=== PATIENT | female | born 1955 | race Caucasian/White ===

== ENCOUNTER 2022-06-30 15:11 | Outpatient (CLI) | payer SELFPAY ==
[2022-06-30 21:48] LABS: Basophils Absolute Auto 0.02 K/uL (0.00-0.30); Basophils Percent Auto 0.2 % (0.0-3.0); Eosinophils Absolute Auto 0.02 K/uL (0.00-0.50); Eosinophils Percent Auto 0.2 % (0.0-7.0); Hematocrit 43.9 % (33.0-51.0); Hemoglobin* 16.3 gm/dL (12.0-16.0); Immature Granulocytes Abs Auto 0.02 K/uL (0.00-0.30); Mean Corpuscular HGB Conc 37 gm/dL (32-36); Mean Corpuscular Hemoglobin 36 pg (26-34); Mean Corpuscular Volume 97 fL (80-100); Neutrophils Percent Auto 78.4 % (42.0-72.0); Platelet Count* 191 K/uL (140-440); RDW Coefficient of Variation % 11.2 % (11.5-15.5); Red Blood Count 4.52 m/uL (4.00-5.20)
[2022-06-30 21:53] LABS: Slide Review Reflex No
[2022-06-30 21:54] LABS: Chloride* 93 mmol/L (96-114)
[2022-06-30 21:55] LABS: Albumin* 4.7 g/dL (3.3-5.0); Sodium* 129 mmol/L (135-149)
[2022-06-30 21:56] LABS: Potassium* 4.4 mmol/L (3.6-5.1)
[2022-06-30 21:58] LABS: Alanine Aminotransferase* 32 U/L (4-35); Alkaline Phosphatase* 125 U/L (40-150); Aspartate Amino Transferase* 46 U/L (12-35); Bilirubin Total* 0.9 mg/dL (0.1-1.5); Blood Urea Nitrogen* 21 mg/dL (7-30); Carbon Dioxide* 24 mmol/L (20-32); Cholesterol* 276 mg/dL (90-199); Creatinine* 0.8 mg/dL (0.5-1.5); Estimated Glomerular Filt Rate 81 ml/min; Glucose* 87 mg/dL (60-115); Total Protein* 7.5 g/dL (6.0-8.3); Triglycerides* 303 mg/dL (40-149)
[2022-06-30 21:59] LABS: Calcium* 9.9 mg/dL (8.4-10.6); HDL Cholesterol* 69 mg/dL (>=50); LDL Cholesterol Calculated 146 mg/dL (<100)
[2022-06-30 22:14] LABS: Troponin I* < 0.01 ng/mL (0.01-0.04)
[2022-07-01 00:04] LABS: D Dimer Quantitative* 1.09 ug/ml (0.00-0.50)
== END 2022-06-30 15:12 | disposition home or self-care (01) ==
PROVIDERS: Visit Provider Nurse Practitioner Family
DX: R06.00 Dyspnea, unspecified (principal); R07.89 Other chest pain; E78.5 Hyperlipidemia, unspecified
CPT/HCPCS: 36415; 80053; 80061; 84484; 85025; 85379

== ENCOUNTER 2022-07-01 11:57 | Outpatient (CLI) | payer SELFPAY ==
--- OUTSIDE RECORDS SUMMARY | 2022-07-01 12:00 | XMS_ITS | Clinical Summary ---
:1955 Author Organization [facility] [place] [address] Care Team Providers Name Role Phone None Primary Care Provider Unavailable Allergies No known active allergies Medications No known medications Active Problems No known active problems Encounters Date Type Specialty Care Team Description 04/04/2022 Emergency Stephanie Sánchez Sprain of left ankle, MD Diya unspecified lance austin, of[facility] (Primary Dx) 04/04/2022 Travel from Last 3 Months Social History Tobacco Use Types Packs/Day Years Used Date Current Every Day Smoker 0.5 30 Smokeless Tobacco: Never Used Alcohol Use Standard Drinks/Week Comments Yes 0 (1 standard drink = 0.6 oz pure alcoho l) 2 per day Alcohol Habits Answer Date Recorded How often do you have a drink containing alcohol? Not asked How many drinks containing alcohol do you have on a typical Not asked day when you are drinking? How often do you have six or more drinks on one occasion? No t asked Comment: 2 per day 06/23/2018 Sex Assigned at Date Recorded Not on file Obstetrics History Last Filed Vital Signs Vital Sign Reading Time Taken Comments Blood Pressure 156/100 04/04/2022 10:08 AM CDT Pulse 95 04/04/2022 10:08 AM CDT Temperature 37 ??C (98.6 ??F) 04/04/2022 10:08 AM CDT Respiratory Rate 20 04/04/2022 10:08 AM CDT Oxygen Saturation 99% 04/04/2022 10:08 AM CDT Inhaled Oxygen Concentration - - Weight 50.8 kg (112 lb) 04/04/2022 10:08 AM CDT Height 157.5 cm (5' 2) 04/04/2022 10:08 AM CDT Body Mass Index 20.49 04/04/2022 10:08 AM CDT Plan of Treatment Health Maintenance Due Date Last Done Comments Tdap 1967 Depression screening for age 12+ 1968 BMI (ht and wt on same day) for age 1006/07/1974 18+ Hepatitis C screening for age 18-79 1974 Tetanus booster 1976 Colonoscopy through age 75 2001 Lipids for age 45-75 2001 Mammogram for age 45-75 2001 Zoster (shingles) series for age 50+ 2006 (1 of 2) DEXA/DXA scan for age 65+ 2021 Pneumococcal series for age 65+ (1 - 2021 PCV) COVID-19 vaccine series (4 - Booster 09/13/2021 07/19/2021, 10/09/2020, for Moderna series) 09/11/2020 Influenza for age 65+ 05/01/2022 Procedures Procedure Name Priority Date/Time Associated Diagnosis Comme nts XR FOOT 3 VIEWS STAT 04/04/2022 11:59 AM Resul ts for this LEFT CDT procedure are i n the results section. XR ANKLE 3 VIEWS STAT 04/04/2022 10:36 AM Resu lts for this LEFT CDT procedure are i n the results section. from Last 3 Months Results XR FOOT 3 VIEWS LEFT (04/04/2022 11:59 AM CDT) Anatomical Region Laterality Modality FEET, FOOT L Digital Radiography Specimen (Source) Anatomical Collection Method Collection Time Re ceived Time Location / / Volume Laterality 04/04/2022 12:11 PM CDT Narrative 04/04/2022 12:11 PM CDT For Patients: ??As a result of the Century Cures Act, medical imaging exams and procedure report s are released immediately into your [facility] medical record. ??You may view this report before your referring provider. ??If you have questions, please contact your health care provider. Indication: Trauma. Technique: Left foot 3 views. Comparison: None. Findings: Bones: Alignment is normal. No fractures or bone lesions. Joint spaces: Unremarkable. Soft tissues: Unremarkable. Impression: No sign of acute injury. Dictated by Boaz Ngo MD @ 04/04/2022 12 :11:32 PM (Electronically Signed) Procedure Note Boaz Ngo MD - 04/04/2022Form atting of this note might be different from the original. For Patients: As a result of the Cures Act, medical imaging exams and procedure reports are released immediately into your electronic medical record. You may view this report before your referring provider. If you have questions, please contact yo health care provider. Indication: Trauma. Technique: Left foot 3 views. Comparison: None. Findings: Bones: Alignment is normal. No fractures or bone lesions. Joint spaces: Unremarkable. Soft tissues: Unremarkable. Impression: No sign of acute injury. Dictated by Boaz Ngo MD @ 04/04/2022 12 :11:32 PM (Electronically Signed) Stephanie Sánchez MD GENERAL IMAGING XR ANKLE 3 VIEWS LEFT (04/04/2022 10:36 AM CDT) Anatomical Region Laterality Modality ANKLES, ANKLE L Digital Radiography Specimen (Source) Anatomical Collection Method Collection Time Re ceived Time Location / / Volume Laterality 04/04/2022 10:45 AM CDT Narrative 04/04/2022 10:45 AM CDT For Patients: ??As a result of the Cures Act, medical imaging exams and procedure report s are released immediately into your [facility] medical record. ??You may view this report before your referring provider. ??If you have questions, please contact your health care provider. Indication: Injury Technique: Three views of the left ankle were acqui red Comparison: None Findings: Ankle mortise and syndesmosis are intact . Well corticated ossific fragment beneath the lateral malleolus is likely an old injury or secondary ossification center. There is moderate irregularity of the v isualized base of the left 5th metatarsa l. This is not fully evaluated on this ankle study. If there is pain at the base of the left 5th metatarsal, consider a plain film of the left foot. There is a small dorsal calcaneal spur Impression: Moderate irregularity at the base of the left 5th metatarsal. If this is the area of pain, consider a foot radiograph. Lateral soft tissue swelling. Ankle mortise and syndesmosis are intact. Dictated by Julian Garcia MD @ 04/04/2022 10:45:13 AM (Electronically Signed) Procedure Note Julian Garcia MD - 04/04/2022Format ting of this note might be different from the original. For Patients: As a result of the ntury Cures Act, medical imaging exams and procedure reports are released immediately into your electronic medical record. You may view this report before your referring provider. If you have questions, please contact [facility] health care provider. Indication: Injury Technique: Three views of the left ankle were acqui red Comparison: None Findings: Ankle mortise and syndesmosis are intact . Well corticated ossific fragment beneath the lateral malleolus is likely an old injury or secondary ossification center. There is moderate irregularity of the visualized base of the left 5th metatarsal. This is not fully evaluated on this ankle study. If there is pain at the base of the left 5th metatarsal, consider a plain film of the left foot. There is a small dorsal calcaneal spur Impression: Moderate irregularity at the base of the left 5th metatarsal. If this is the area of pain, consider a foot radiograph. Lateral soft tissue swelling. Ankle mortise and syndesmosis are intact. Dictated by Julian Garcia MD @ 04/04/2022 10:45:13 AM (Electronically Signed) Stephanie Sánchez MD GENERAL IMAGING from Last 3 Months Insurance Payer Benefit Plan / Subscriber ID Effective Dates Phone Addre ss Type Group [id number] 2017-Present [id number] [place] [address] (Home) [place] [address] Care Teams Wrapper Stripper Relationship Specialty Start Date End Date None PCP - General 04/03/22 .
--- NOTE | 2022-07-01 14:00 | CRLHL7_ITS ---
For Patients: As a result of the Century Cures Act, medical imaging exams and procedure reports are released immediately into your electronic medical record. You may view this report before your referring provider. If you have questions, please contact your health care provider. INDICATION: SOB, CHEST PAIN, DIZZY, TINNITUS, CHEST PRESSURE, WEAKNESS COMPARISON: Chest x-ray 06/30/2022 TECHNIQUE: CT volumetric acquisition was performed of the thorax during intravenous infusion of 95 cc Isovue 370 nonionic intravenous contrast. Please note that all CT scans at this facility use dose modulation, iterative reconstruction, and/or weight-based dosing when appropriate to reduce radiation dose to as low as reasonably achievable. FINDINGS: The CT images are of acceptable quality and demonstrate normal uniform vascular enhancement within the pulmonary arteries. There are no suspicious filling defects which would indicate pulmonary thromboemboli. There is no evidence of pleural or pericardial fluid. No thoracic aortic aneurysm. Heart is not enlarged. Mildly prominent lymph nodes are present within the sub carinal space and right hilum measuring up to 1.2 cm. On lung window settings, there is no evidence of pneumothorax. COPD/emphysema. Multiple calcified and noncalcified nodules right upper lobe. There is a partially calcified irregularly marginated nodule within the right upper lobe accounting for the x-ray findings measuring 1.7 x 1.3 cm. Partial calcification of this nodule noted. No fracture is present. No suspicious thyroid nodule. Upper abdomen unremarkable. No fracture. IMPRESSION: No evidence of pulmonary thromboembolism. COPD/emphysema. Multiple nodules in the right upper lobe with associated scarring and a 1.7 x 1.3 cm irregularly marginated and partially calcified right upper lobe nodule. This appears to be associated with linear scarring and is concerning for a scar carcinoma. Recommendations include short-term follow-up CT in 3 months, tissue sampling or CT PET. Mild right hilar and mediastinal adenopathy. Multiple other smaller nodules are present within the right upper lobe, some of which are calcified and may represent sequela of granulomatous disease. Please note that all CT scans at this facility use dose modulation, iterative reconstruction, and/or weight-based dosing when appropriate to reduce radiation dose to as low as reasonably achievable. Dictated by Gorge Bravo MD @ 07/01/2022 3:44:35 PM (Electronically Signed)
== END 2022-07-01 11:58 | disposition home or self-care (01) ==
PROVIDERS: PCP Nurse Practitioner Family; Visit Provider Nurse Practitioner Family
DX: R79.89 Other specified abnormal findings of blood chemistry (principal); J44.9 Chronic obstructive pulmonary disease, unspecified; R91.8 Other nonspecific abnormal finding of lung field; R06.02 Shortness of breath; R07.89 Other chest pain
CPT/HCPCS: 71260; Q9967

== ENCOUNTER 2023-04-20 16:26 | Outpatient (CLI) | payer MEDICARE, SELFPAY | END 2023-04-20 16:27 | disposition home or self-care (01) | PROVIDERS: PCP Nurse Practitioner Family; Visit Provider Nurse Practitioner Family | DX: E87.6 Hypokalemia (principal); I10 Essential (primary) hypertension; R26.89 Other abnormalities of gait and mobility; F41.9 Anxiety disorder, unspecified; F32.A Depression, unspecified | CPT/HCPCS: 80048; 82607 ==

== ENCOUNTER 2024-06-07 09:01 | Outpatient (CLI) | payer MEDICARE, SELFPAY ==
--- OUTSIDE RECORDS SUMMARY | 2024-06-07 09:05 | XMS_ITS | Clinical Summary ---
Author Organization [facility] Address [place], [place] [address] Care Team Providers Care Hand Trimmer Name Role Phone None Primary Care Provider Unavailabl e Allergies No known active allergies Medications Medication Sig Dispensed Refills Start Date End Date Status buPROPion (WELLBUTRIN XL) 150 mg Extended-Release tablet Take 150 mg by mouth every morning. 08/01/2022 Active atorvastatin (LIPITOR) 20 mg tablet Take 20 mg by mouth at bedtime. 08/01/2022 Active albuterol HFA (PRO-AIR; VENTOLIN; PROVENTIL) 90 mcg/actuation inhalerIndications:CO PD exacerbation (HC) Inhale 2 Puffs by mouth 4 times daily if needed for Shortness Of Breath. 1 Each 04/18/2023 Active famotidine (PEPCID) 20 mg tabletIndications:Gas tritis, presence of bleeding unspecified, unspecified chronicity, unspecified gastritis type Take 1 Tablet (20 mg) by mouth two times daily. 60 Tablet 04/18/2023 Active rx albuterol HFA (PROVENTIL; VENTOLIN) (90 mcg each actuation) inhaler (ED DC MED)Indications:COPD exacerbation (HC) Inhale 2 Puffs by mouth 4 times daily. 6.7 g 04/18/2023 Active Active Problems No known active problems Social History Tobacco Use Types Packs/Day Years Used Date Smoking Tobacco: Every Day Cigarettes 0.5 30 Smokeless Tobacco: Never Alcohol Use Standard Drinks/Week Comments Yes 0 (1 standard drink = 0.6 oz pur e alcohol) 2 per day Sex and Gender Information Value Date Recorded Sex Assigned at Not on file Gender Identity Not on file Sexual Orientation Not on file Obstetrics History Last Filed Vital Signs Vital Sign Reading Time Taken Comments Blood Pressure 169/107 04/18/2023 7:29 PM CDT Pulse 99 04/18/2023 7:29 PM CDT Temperature 37.1 ??C (98.8 ??F) 04/18/2023 4:09 PM CD T Respiratory Rate 22 04/18/2023 4:09 PM CDT Oxygen Saturation 89% 04/18/2023 7:29 PM CDT Inhaled Oxygen Concentration - - Weight 56.7 kg (125 lb) 04/18/2023 4:09 PM CDT Height 157.5 cm (5' 2) 04/18/2023 4:09 PM CDT Body Mass Index 22.86 04/18/2023 4:09 PM CDT Plan of Treatment Health Maintenance Due Date Last Done Comments Tdap 1967 Depression screening for age 12+ 1968 BMI (ht and wt on same day) for age 18+ 1974 Hepatitis C screening for age 18-79 1974 Tetanus booster 1976 Colonoscopy through age 75 2001 Lipids for age 45-75 2001 Mammogram for age 45-75 2001 Zoster (shingles) series for age 50+ (1 of 2) 2006 DEXA/DXA scan for age 65+ 2021 Pneumococcal series for age 65+ (1 of 1 - PCV) 2021 COVID-19 vaccine series ( season) 2024 07/19/2021, 10/09/2020, 09/11/2020 Influenza for age 65+ 05/01/2024 Care Teams Hand Trimmer Relationship Specialty Start Date End Date None . PCP - General 04/03/22
== END 2024-06-07 09:02 | disposition home or self-care (01) ==
PROVIDERS: PCP Nurse Practitioner Family; Visit Provider Nurse Practitioner Family
DX: E87.6 Hypokalemia (principal); I10 Essential (primary) hypertension; E78.5 Hyperlipidemia, unspecified; R71.8 Other abnormality of red blood cells; R74.8 Abnormal levels of other serum enzymes; Z13.0 Encounter for screening for diseases of the blood and blood-forming organs and certain disorders involving the immune mechanism
CPT/HCPCS: 80053; 80061; 85025

== ENCOUNTER 2024-06-20 08:54 | Outpatient (CLI) | payer MEDICARE, SELFPAY ==
--- OUTSIDE RECORDS SUMMARY | 2024-06-20 08:57 | XMS_ITS | Clinical Summary ---
Author Organization [facility] Address [place], [place] [address] Care Team Providers Care Conveyor Loader Name Role Phone None Primary Care Provider [...] Influenza for age 65+ 05/01/2024 Care Teams Conveyor Loader Relationship Specialty Start Date End Date None . PCP - General 04/03/22
--- NOTE | 2024-06-20 09:00 | CRLHL7_ITS ---
For Patients: As a result of the Century Cures Act, medical imaging exams and procedure reports are released immediately into your electronic medical record. You may view this report before your referring provider. If you have questions, please contact your health care provider. INDICATION: Follow-up pulmonary nodule TECHNIQUE: CT chest without contrast. COMPARISON: 07/01/[address] FINDINGS: Lungs and pleura: Diffuse emphysema. Partially calcified right lung apex nodule has not significantly changed, measuring 15 x 12 mm. Adjacent linear scarring and multiple right lung calcified nodules are also unchanged. No new nodules. Heart and vasculature: Heart size is normal. Thoracic aorta and pulmonary artery are normal in caliber. Lymph nodes/mediastinum: No mediastinal, hilar, or axillary adenopathy. Thyroid gland is normal. Chest wall: No masses. Upper abdomen: Normal. Bones: Unremarkable for age. IMPRESSION: 1. Right upper lobe nodule is unchanged and compatible with benign scarring. No further follow-up necessary. 2. Marked emphysema. Please note that all CT scans at this facility use dose modulation, iterative reconstruction, and/or weight-based dosing when appropriate to reduce radiation dose to as low as reasonably achievable. Dictated by Adria Lutz MD @ 06/21/2024 11:24:28 AM (Electronically Signed)
--- NOTE | 2024-06-20 10:15 | CRLHL7_ITS ---
For Patients: As a result of the Century Cures Act, medical imaging exams and procedure reports are released immediately into your electronic medical record. You may view this report before your referring provider. If you have questions, please contact your health care provider. INDICATION: Dizziness and giddiness. TECHNIQUE Multiplanar multisequence MR imaging of the brain prior to and following intravenous contrast. Comparison None. Findings Mild diffuse cerebral volume loss. No mass effect or midline shift. Scattered FLAIR hyperintensities in the supratentorial white matter, typical for mild chronic microvascular ischemic changes. Punctate susceptibility medial right frontal lobe may represent a chronic microhemorrhage or mineralization. No recent intracranial hemorrhage or pathologic extra-axial fluid collection. No diffusion restriction to suggest acute infarction. No pathologic intracranial enhancement. The major arterial flow voids of the skullbase are preserved. Globes are symmetric. Mild paranasal sinus mucosal thickening. Small left and trace right mastoid fluid. IMPRESSION: 1. No acute intracranial abnormality. 2. Mild chronic microvascular ischemic changes and diffuse cerebral volume loss. 3. Small left and trace right mastoid effusion. Dictated by Brady Hough MD @ 06/20/2024 2:38:58 PM (Electronically Signed)
== END 2024-06-20 08:55 | disposition home or self-care (01) ==
PROVIDERS: PCP Nurse Practitioner Family; Visit Provider Nurse Practitioner Family
DX: R42 Dizziness and giddiness (principal); I67.82 Cerebral ischemia; R91.8 Other nonspecific abnormal finding of lung field; J43.9 Emphysema, unspecified; R26.89 Other abnormalities of gait and mobility
CPT/HCPCS: 70553; 71250; A9575

== ENCOUNTER 2024-08-02 14:15 | Outpatient (CLI) | payer MEDICARE, SELFPAY ==
--- OUTSIDE RECORDS SUMMARY | 2024-08-02 14:19 | XMS_ITS | Clinical Summary ---
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 1 Each 3 Active Additional Information Patient taking differently: 1 PuffInhalation QID PRN, Shortness Of Breath,Inhale 1 puff by mouth every 4-6 hours daily if needed for shortness of breath., Reported on 07/19/2024 famotidine (PEPCID) 20 mg tabletIndication s:Gastritis, presence of bleeding unspecified, unspecified chronicity, unspecified gastritis type Take 1 Tablet (20 mg) by mouth two times daily. 60 Tablet 3 Active Additional Information Patient taking differently:20 mg OralDAILY PRN, Heartburn, Reported on 07/19/2024 pravastatin (PRAVACHOL) 20 mg tablet Take 20 mg by mouth once daily with evening meal. Active naproxen (Aleve) 220 mg tablet Take 440 mg by mouth once daily if needed for Pain. Active meclizine (ANTIVERT) 25 mg tabletIndication s:Vertigo Take 0.5-1 Tablets (12.5-25 mg) by mouth 3 times daily if needed for Vertigo. 10 Tablet 4 Active amLODIPine (NORVASC) 5 mg tabletIndication s:Uncontrolled hypertension Take 1 Tablet (5 mg) by mouth once daily. 31 Tablet 1 4 Active buPROPion (WELLBUTRIN XL) 150 mg Extended-Release tablet Take 150 mg by mouth every morning. 2 07/19/20 24 Discontinued(P harmacist change per medication history (E-cancel not sent)) atorvastatin (LIPITOR) 20 mg tablet Take 20 mg by mouth at bedtime. 2 07/19/20 24 Discontinued(P harmacist change per medication history (E-cancel not sent)) rx albuterol HFA (PROVENTIL; VENTOLIN) (90 mcg each actuation) inhaler (ED DC MED)Indications: COPD exacerbation (HC) Inhale 2 Puffs by mouth 4 times daily. 6.7 g 3 07/19/20 24 Discontinued(P harmacist change per medication history (E-cancel not sent)) Active Problems Problem Noted Date Diagnosed Date Altered gait 07/19/2024 Uncontrolled hypertension 07/19/2024 Alcohol use disorder 07/19/2024 COPD (chronic obstructive pulmonary disease) Hypercholesteremia 07/19/2024 Lung nodule 07/19/2024 Encounters Date Type Department Care Team Description 07/21/2024 Patient Outreach [facility] [address] [place] [address] Stefania Garcia RN Primary RN Care Management (Hospital DC: 07/20/2024/LACE: 68/Uncontrolled HTN); Hospital F/U 07/19/2024 9:18 AM HOSE SEAMER - 07/20/2024 3:15 PM HOSE SEAMER Hospital Encounter [facility] [address] [place] [address] Holly Moise MD Kethireddy, RAFAEL Polanco Jonathan Philip, NP Difficulty walking (Primary Dx); Alcohol use; Lung nodule; Vertigo; Uncontrolled hypertension Discharge Disposition: Home Self Care 07/19/2024 Travel from Last 3 Months Social History Tobacco Use Types Packs/Day Years Used Date Smoking Tobacco: Every Day Cigarettes 0.5 30 Smokeless Tobacco: Never Alcohol Use Standard Drinks/Week Comments Yes 0 (1 standard drink = 0.6 oz pur e alcohol) 2 per day Social Connections Answer Date Recorded Do you often feel lonely or isolated from those around you? 0 07/19/2024 Financial Resource Strain Answer Date R ecorded Difficulty of Paying Living Expenses 3 07/19/2024 Difficulty of Paying Living Expenses Not on file 07/19/2024 Food Insecurity Answer Date Recorded Do you worry your food will run out before you are able to buy more? 1 07/19/2024 Transportation Needs Answer Date Record ed Does lack of transportation keep you from medica l appointments? 1 07/19/2024 Does lack of transportation keep you from work, meetings or getting things that you need? 1 07/19/2024 Housing Stability Answer Date Recorded What is your housing situation today? 1 07/19/2024 Sex and Gender Information Value Date Recorded Sex Assigned at Not on file Gender Identity Not on file Sexual Orientation Not on file Obstetrics History Last Filed Vital Signs Vital Sign Reading Time Taken Comments Blood Pressure 131/83 07/20/2024 9:09 AM HOSE SEAMER Pulse 99 07/20/2024 9:09 AM HOSE SEAMER Temperature 37.4 C (99.4 F) 07/20/2024 9:09 AM HOSE SEAMER Respiratory Rate 16 07/20/2024 9:09 AM HOSE SEAMER Oxygen Saturation 93% 07/20/2024 9:09 AM HOSE SEAMER Inhaled Oxygen Concentration - - Weight 47.4 kg (104 lb 9.6 oz) 07/20/2024 5:10 A M HOSE SEAMER Height 157.5 cm (5' 2) 07/19/2024 9:22 AM HOSE SEAMER Body Mass Index 19.13 07/19/2024 9:22 AM HOSE SEAMER Plan of Treatment Health Maintenance Due Date Last Done Comments Pneumococcal series for age 65+ (1 of 2 - PCV) 1962 Tdap 1967 Depression screening for age 12+ 1968 BMI (ht and wt on same day) for age 18+ 1974 Hepatitis C screening for age 18-79 1974 Tetanus booster 1976 Colonoscopy through age 75 2001 Lipids for age 45-75 2001 Mammogram for age 45-75 2001 Zoster (shingles) series for age 50+ (1 of 2) 2006 DEXA/DXA scan for age 65+ 2021 COVID-19 vaccine series ( season) 2024 07/19/2021, 10/09/2020, 09/11/2020 Influenza for age 65+ 05/01/2024 Procedures Procedure Name Priority Date/Time Associated Diagnosis Comments VITAMIN B12 ALISSA 07/20/2024 5:41 AM HOSE SEAMER RED CELL MORPHOLOGY Timed 07/20/2024 5 :41 AM HOSE SEAMER PLATELET ESTIMATE Timed 07/20/2024 5:4 1 AM HOSE SEAMER MAGNESIUM Early AM 07/20/2024 5:41 AM HOSE SEAMER POTASSIUM Early AM 07/20/2024 5:41 AM HOSE SEAMER PLATELET COUNT Early AM 07/20/2024 5:41 AM HOSE SEAMER CREATININE Early AM 07/20/2024 5:41 AM HOSE SEAMER SODIUM Early AM 07/20/2024 5:[address] CHEST WO STAT 07/19/2024 2:46 PM HOSE SEAMER MR HEAD BRAIN WWO STAT 07/19/2024 2:[address] ANGIO HEAD AND NECK CAROTID STAT 07/19/2024 11:[address] HEAD BRAIN WO STAT 07/19/2024 11:5 2 AM HOSE SEAMER XR CHEST 1 VIEW PORTABLE STAT 07/19/2024 11:51 AM HOSE SEAMER URINALYSIS MICROSCOPIC STAT 07/19/2024 10:18 AM HOSE SEAMER DRUG SCREEN RAPID URINE INHOUSE STAT 07/19/2024 10:18 AM HOSE SEAMER UA W/ SEDIMENT EXAM REFLEXED PER CRITERIA STAT 07/19/2024 10:18 AM HOSE SEAMER EKG 12 LEAD STAT 07/19/2024 9:48 AM HOSE SEAMER CBC WITH AUTO DIFFERENTIAL STAT 07/19/2024 9:33 AM HOSE SEAMER ETHANOL SERUM OR PLASMA STAT 07/19/2024 9:33 AM HOSE SEAMER AMMONIA STAT 07/19/2024 9:33 AM HOSE SEAMER TSH STAT 07/19/2024 9:33 AM HOSE SEAMER MAGNESIUM STAT 07/19/2024 9:33 AM HOSE SEAMER HEPATIC FUNCTION PANEL STAT 07/19/2024 9:33 AM HOSE SEAMER BASIC METABOLIC PANEL STAT 07/19/2024 9:33 AM HOSE SEAMER CBC WITH AUTO DIFFERENTIAL STAT 07/19/2024 9:33 AM HOSE SEAMER from Last 3 Months Results * RED CELL MORPHOLOGY (07/20/2024 5:41 AM HOSE SEAMER) [facility] RBC COMMENT RBC morphology appears normal RBC morphology appears normal, RBC morphology within normal limits for newborns. 07/20/2024 7:38 AM HOSE SEAMER [facility] LARGE PLATELETS Present 07/20/2024 7:38 AM HOSE SEAMER [facility] Blood BLOOD SPECIMEN / Unknown Venipuncture / Unknown 07/20/2024 5:41 AM HOSE SEAMER 07/20/2024 6:30 AM HOSE SEAMER Domenica Aguilera NP Student HEMATOLOGY [facility] [address] [place] [address] * (ABNORMAL) PLATELET ESTIMATE (07/20/2024 5:41 AM HOSE SEAMER) PLATELET ESTIMATE Decreased (A) Adequate, No estimate 07/20/2024 7:38 AM HOSE SEAMER [facility] Blood BLOOD SPECIMEN / Unknown Venipuncture / Unknown 07/20/2024 5:41 AM HOSE SEAMER 07/20/2024 6:30 AM HOSE SEAMER Domenica Aguilera NP Student HEMATOLOGY Performing Organization Address City/[facility] Co de Phone Number [facility] [address] [place] [address] * (ABNORMAL) PLATELET COUNT (07/20/2024 5:41 AM HOSE SEAMER) Pathologist [facility] PLATELET COUNT 82(L) 140 - 440 thou/cu mm 07/20/2024 7:37 AM HOSE SEAMER [facility] MPV 10.2 6.5 - 11.0 fL 07/20/2024 7:37 AM HOSE SEAMER [facility] Blood BLOOD SPECIMEN / Unknown Venipuncture / Unknown 07/20/2024 5:41 AM HOSE SEAMER 07/20/2024 6:30 AM HOSE SEAMER Domenica Aguilera NP Student HEMATOLOGY Performing Organization Address [facility] Co de Phone Number [facility] [address] [place] [address] * SODIUM (07/20/2024 5:41 AM HOSE SEAMER) Pathologist [facility] SODIUM 140 136 - 145 mmol/L 07/20/2024 6:55 AM HOSE SEAMER [facility] Blood BLOOD SPECIMEN / Unknown Venipuncture / Unknown 07/20/2024 5:41 AM HOSE SEAMER 07/20/2024 6:30 AM HOSE SEAMER Domenica Aguilera NP Student CHEMISTRY Performing Organization Address [facility] Co de Phone Number [facility] [address] [place], [place] [phone] * (ABNORMAL) POTASSIUM (07/20/2024 5:41 AM HOSE SEAMER) Pathologist [facility] POTASSIUM 3.3(L) 3.5 - 5.1 mmol/L 07/20/2024 6:55 AM HOSE SEAMER [facility] Blood BLOOD SPECIMEN / Unknown Venipuncture / Unknown 07/20/2024 5:41 AM HOSE SEAMER 07/20/2024 6:30 AM HOSE SEAMER Yana Francis RN CHEMISTRY Performing Organization Address City/[facility]/ZIP Co de Phone Number [facility] [address] [place] [address] * CREATININE (07/20/2024 5:41 AM HOSE SEAMER) eGFR >90 >90 mL/min/1.7 3m2 07/20/2024 6:55 AM HOSE SEAMER [facility] Comment:As of 2021, eG FR is calculated by the CKD-EPI creatinine equation without race adjustment. eGFR can be influenced by muscle mass, exercise, and diet. The reported eGFR is an estimation only and is only applicable if the renal function is stable. CREATININE 0.57 0.50 - 0.90 mg/dL 07/20/2024 6:55 AM HOSE SEAMER [facility] Blood BLOOD SPECIMEN / Unknown Venipuncture / Unknown 07/20/2024 5:41 AM HOSE SEAMER 07/20/2024 6:30 AM HOSE SEAMER Domenica Aguilera NP Student CHEMISTRY Performing Organization Address [facility] Co de Phone Number [facility] [address] [place] [address] * MAGNESIUM (07/20/2024 5:41 AM HOSE SEAMER) Only the most recent of2 resultswithin the time period is included. MAGNESIUM 2.0 1.6 - 2.4 mg/dL 07/20/2024 6:57 AM HOSE SEAMER [facility] Blood BLOOD SPECIMEN / Unknown Venipuncture / Unknown 07/20/2024 5:41 AM HOSE SEAMER 07/20/2024 6:30 AM HOSE SEAMER Yana Francis RN CHEMISTRY Performing Organization Address City/[facility]/ZIP Co de Phone Number [facility] [address] [place] [address] * VITAMIN B12 (07/20/2024 5:41 AM HOSE SEAMER) VITAMIN B12 287 232 - 1,245 pg/mL 07/20/2024 12:44 PM HOSE SEAMER [facility] Blood BLOOD SPECIMEN / Unknown Venipuncture / Unknown 07/20/2024 5:41 AM HOSE SEAMER 07/20/2024 6:30 AM HOSE SEAMER Narrative [facility] - 07/20/2024 12:44 PM HOSE SEAMER Biotin supplements may cause clinically significant interference for this test assay. If interference is suspected, it is strongly recommended that biotin is discontinued for at least one week prior to retesting. [facility] CHEMISTRY [facility] [address] [place] [address], * CT CHEST WO (07/19/2024 2:46 PM HOSE SEAMER) Anatomical Region Laterality Modality CHEST, THORAX, HEART Computed To mography 07/19/2024 3:19 PM HOSE SEAMER Impressions 07/19/2024 3:19 PM HOSE SEAMER 1. No intrathoracic mass or consolidation. 2. Stable scattered sub 6 millimeter indeterminate pulmonary nodules in the lungs. Stable clustered right apex calcified granulomas and linear opacities likely fibrotic change. Please note that all CT scans at this facility use dose modulation, iterative reconstruction, and/or weight-based dosing when appropriate to reduce radiation dose to as low as reasonably achievable. Dictated by Gorge Carrero MD @ 07/19/2024 3:19:09 PM (Electronically Signed) Narrative 07/19/2024 3:19 PM HOSE SEAMER For Patients: As a result of the Century Cures Act, medical imaging exams and procedure reports are released immediately into your electronic medical record. You may view this report before your referring provider. If you have questions, please contact your health care provider. INDICATION: Abnormal xray - lung nodule, Greater Than= 1 cm TECHNIQUE: CT chest without contrast. COMPARISON: Exams dating back to 2022. FINDINGS: Lungs and Airways: Upper lobe predominant centrilobular emphysema. Clustered micro nodules and calcified granulomas in the right apex. A few additional scattered sub 6 millimeter indeterminate pulmonary nodules. Stable. No mass or consolidation. No endoluminal lesion. Heart and Mediastinum: The visualized portions of the thyroid are normal. No axillary or supraclavicular lymphadenopathy. No mediastinal, hilar or retrocrural lymphadenopathy. Normal heart size. Normal caliber aorta. Atherosclerotic and coronary artery calcifications. Pleura: The pleural spaces are normal. Abdomen: Retained contrast in the renal collecting systems. Diffuse hepatic steatosis. Bones and soft tissues: Multilevel lumbar spondylosis. Multilevel Schmorl`s node deformities. Procedure Note Gorge Carrero MD - 07/19/2024 For Patients: As a result of the Cures Act, medical imagingexams and procedure reports are released immediately into your electronicmedical record. You may view this report before your referring provider.If you have questions, please contact your health care provider. INDICATION: Abnormal xray - lung nodule, Greater Than= 1 cm TECHNIQUE: CT chest without contrast. COMPARISON: Exams dating back to 2022. FINDINGS: Lungs and Airways: Upper lobe predominant centrilobular emphysema.Clustered micro nodules and calcified granulomas in the right apex. A fewadditional scattered sub 6 millimeter indeterminate pulmonary nodules.Stable. No mass or consolidation. No endoluminal lesion. Heart and Mediastinum: The visualized portions of the thyroid are normal.No axillary or supraclavicular lymphadenopathy. No mediastinal, hilar orretrocrural lymphadenopathy. Normal heart size. Normal caliber aorta.Atherosclerotic and coronary artery calcifications. Pleura: The pleural spaces are normal. Abdomen: Retained contrast in the renal collecting systems. Diffusehepatic steatosis. Bones and soft tissues: Multilevel lumbar spondylosis. MultilevelSchmorl`s node deformities. IMPRESSION: 1. No intrathoracic mass or consolidation. 2. Stable scattered sub 6 millimeter indeterminate pulmonary nodules inthe lungs. Stable clustered right apex calcified granulomas and linearopacities likely fibrotic change. Please note that all CT scans at this facility use dose modulation,iterative reconstruction, and/or weight-based dosing when appropriate toreduce radiation dose to as low as reasonably achievable. Dictated by Gorge Carrero MD @ 07/19/2024 3:19:09 PM (Electronically Signed) Domenica Willy SWING GRINDER Student CT * MR HEAD BRAIN WWO (07/19/2024 2:20 PM HOSE SEAMER) Anatomical Region Laterality Modality BRAIN, HEAD Magnetic Resonan ce 07/19/2024 2:57 PM HOSE SEAMER Narrative 07/19/2024 2:57 PM HOSE SEAMER For Patients: As a result of the Cures Act, medical imaging exams and procedure reports are released immediately into your electronic medical record. You may view this report before your referring provider. If you have questions, please contact your health care provider. Indication: Stroke. Technique: Multiplanar, multisequence MRI of the brain was performed without and with intravenous contrast. Contrast: 10 cc Dotarem. Comparison: CT head 07/19/2024. Findings: The corpus callosum, pituitary gland clivus appear intact. Mild degenerative change visualized upper cervical spine. There is no restricted diffusion. No intracranial hemorrhage. The ventricles are proportionate to the cerebral sulci. The 4th ventricle appears midline. The basal cisterns appear patent. No abnormal extra-axial fluid collection identified. There is no intracranial mass, abnormal mass-effect or midline shift identified. No abnormal enhancement. Mild parenchymal volume loss. Scattered T2 FLAIR hyperintense foci within the subcortical and periventricular white matter, favored to represent chronic ischemic microvascular disease. Major intracranial vascular flow voids appear grossly intact. Both globes are preserved. Moderate mastoid effusions. Impression: 1. No acute/subacute infarct. 2. Mild chronic ischemic microvascular disease. 3. Moderate mastoid effusions. Dictated by Junior Mcdermott MD @ 07/19/2024 2:57:53 PM (Electronically Signed) Procedure Note Junior Mcdermott DO - 07/19/2024 For Patients: As a result of the Cures Act, medical imagingexams and procedure reports are released immediately into your electronicmedical record. You may view this report before your referring provider.If you have questions, please contact your health care provider. Indication: Stroke. Technique: Multiplanar, multisequence MRI of the brain was performed without and withintravenous contrast. Contrast: 10 cc Dotarem. Comparison: CT head 07/19/2024. Findings: The corpus callosum, pituitary gland clivus appear intact. Milddegenerative change visualized upper cervical spine. There is no restricted diffusion. No intracranial hemorrhage. The ventricles are proportionate to the cerebral sulci. The 4th ventricleappears midline. The basal cisterns appear patent. No abnormal extra-axialfluid collection identified. There is no intracranial mass, abnormal mass-effect or midline shiftidentified. No abnormal enhancement. Mild parenchymal volume loss. Scattered T2 FLAIR hyperintense foci withinthe subcortical and periventricular white matter, favored to representchronic ischemic microvascular disease. Major intracranial vascular flow voids appear grossly intact. Both globesare preserved. Moderate mastoid effusions. Impression: 1. No acute/subacute infarct. 2. Mild chronic ischemic microvascular disease. 3. Moderate mastoid effusions. Dictated by Junior Mcdermott MD @ 07/19/2024 2:57:53 PM (Electronically Signed) Domenica Aguilera NP Student MR * CTA HEAD AND NECK CAROTID (07/19/2024 11:52 AM HOSE SEAMER) Anatomical Region Laterality Modality BRAIN, NECK Computed Tomogra phy 07/19/2024 12:2 2 PM HOSE SEAMER Addenda Addendum by Bob Miles MD on 07/19/2024 4:17 PM HOSE SEAMER For Patients: As a result of the Cures Act, medical imaging exams and procedure reports are released immediately into your electronic medical record. You may view this report before your referring provider. If you have questions, please contact your health care provider. CLINICAL HISTORY: Acute neurological deficit. TECHNIQUE: Standard helical CT image acquisition through the head following the administration of intravenous contrast was performed. 3D and MIP reconstructions were performed at a separate workstation and permanently archived. COMPARISON: None available. FINDINGS: Scattered intracranial atherosclerotic disease without proximal large vessel occlusion or flow-limiting luminal stenosis. No evidence of cerebral aneurysm. No findings to suggest an arterial-venous shunting lesion. The major dural venous sinuses and deep venous system are patent. IMPRESSION: Scattered intracranial atherosclerotic disease without proximal large vessel occlusion or flow-limiting luminal stenosis. Please note that all CT scans at this facility use dose modulation, iterative reconstruction, and/or weight-based dosing when appropriate to reduce radiation dose to as low as reasonably achievable. Dictated by Bob Miles MD @ 07/19/2024 4:17:51 PM (Electronically Signed) Impressions 07/19/2024 4:15 PM HOSE SEAMER Patent cervical arterial vasculature without hemodynamically significant luminal stenosis. Please note that all CT scans at this facility use dose modulation, iterative reconstruction, and/or weight-based dosing when appropriate to reduce radiation dose to as low as reasonably achievable. Dictated by Bob Miles MD @ 07/19/2024 4:15:57 PM (Electronically Signed) Narrative 07/19/2024 4:15 PM HOSE SEAMER For Patients: As a result of the Cures Act, medical imaging exams and procedure reports are released immediately into your electronic medical record. You may view this report before your referring provider. If you have questions, please contact your health care provider. CLINICAL HISTORY: Acute neurological deficit. TECHNIQUE: Standard helical CT image acquisition through the neck was performed after intravenous contrast bolus enhancement. 3D and MIP reconstructions were performed at a separate workstation and permanently archived. COMPARISON: None available. FINDINGS: The origins of the great vessels from the aortic arch are patent. The common carotid arteries are patent. No significant luminal stenoses of the proximal ICAs by NASCET criteria. The more distal cervical segments of the ICAs are patent. The origins and cervical segments of the vertebral arteries are patent. Advanced emphysematous changes within the visualized upper lungs with [id number]-left pleural-parenchymal scarring at the lung apices. Procedure Note Bob Miles MD - 07/19/2024 For Patients: As a result of the Cures Act, medical imagingexams and procedure reports are released immediately into your electronicmedical record. You may view this report before your referring provider.If you have questions, please contact your health care provider. CLINICAL HISTORY: Acute neurological deficit. TECHNIQUE: Standard helical CT image acquisition through the neck was performed afterintravenous contrast bolus enhancement. 3D and MIP reconstructions wereperformed at a separate workstation and permanently archived. COMPARISON: None available. FINDINGS: The origins of the great vessels from the aortic arch are patent. Thecommon carotid arteries are patent. No significant luminal stenoses of theproximal ICAs by NASCET criteria. The more distal cervical segments of theICAs are patent. The origins and cervical segments of the vertebralarteries are patent. Advanced emphysematous changes within the visualized upper lungs [id number]-left pleural-parenchymal scarring at the lung apices. IMPRESSION: Patent cervical arterial vasculature without hemodynamically significantluminal stenosis. Please note that all CT scans at this facility use dose modulation,iterative reconstruction, and/or weight-based dosing when appropriate toreduce radiation dose to as low as reasonably achievable. Dictated by Bob Miles MD @ 07/19/2024 4:15:57 PM (Electronically Signed) Holly Moise MD CT * CT HEAD BRAIN WO (07/19/2024 11:52 AM HOSE SEAMER) Anatomical Region Laterality Modality HEAD, BRAIN Computed Tomogra phy 07/19/2024 12:1 2 PM HOSE SEAMER Impressions 07/19/2024 12:12 PM HOSE SEAMER No acute intracranial abnormality. Please note that all CT scans at this facility use dose modulation, iterative reconstruction, and/or weight-based dosing when appropriate to reduce radiation dose to as low as reasonably achievable. Dictated by Luis Shelby MD @ 07/19/2024 12:12:06 PM (Electronically Signed) Narrative 07/19/2024 12:12 PM HOSE SEAMER For Patients: As a result of the Cures Act, medical imaging exams and procedure reports are released immediately into your electronic medical record. You may view this report before your referring provider. If you have questions, please contact your health care provider. INDICATION: Head trauma, moderate-severe TECHNIQUE: CT of the head was performed without IV contrast. COMPARISON: None. FINDINGS: Parenchyma: No acute hemorrhage, infarction, or mass. Mild scattered periventricular white matter hypoattenuation is nonspecific and is favored to represent chronic small vessel ischemic disease. Ventricles and extra-axial spaces: Mild involutional changes. Visualized paranasal sinuses: Clear. Mastoid air cells: Clear. Bones: No focal abnormality. Additional comment: None. Procedure Note Bob Shelby MD - 07/19/2024 For Patients: As a result of the Cures Act, medical imagingexams and procedure reports are released immediately into your electronicmedical record. You may view this report before your referring provider.If you have questions, please contact your health care provider. INDICATION: Head trauma, moderate-severe TECHNIQUE: CT of the head was performed without IV contrast. COMPARISON: None. FINDINGS: Parenchyma: No acute hemorrhage, infarction, or mass. Mild scattered periventricular white matter hypoattenuation is nonspecificand is favored to represent chronic small vessel ischemic disease. Ventricles and extra-axial spaces: Mild involutional changes. Visualized paranasal sinuses: Clear. Mastoid air cells: Clear. Bones: No focal abnormality. Additional comment: None. IMPRESSION: No acute intracranial abnormality. Please note that all CT scans at this facility use dose modulation,iterative reconstruction, and/or weight-based dosing when appropriate toreduce radiation dose to as low as reasonably achievable. Dictated by Luis Shelby MD @ 07/19/2024 12:12:06 PM (Electronically Signed) Holly Moise MD CT * XR CHEST 1 VIEW PORTABLE (07/19/2024 11:51 AM [facility]) Anatomical Region Laterality Modality HEART, THORAX, CHEST Digital Rad iography 07/19/2024 11:5 7 AM [facility] Impressions 07/19/2024 11:57 AM [facility] Chronic chest findings similar to the prior chest x-ray and CT. No acute cardiopulmonary pathology. Dictated by Ariel Cruz MD @ 07/19/2024 11:57:39 AM (Electronically Signed) Narrative 07/19/2024 11:57 AM [facility] For Patients: As a result of the Cures Act, medical imaging exams and procedure reports are released immediately into your electronic medical record. You may view this report before your referring provider. If you have questions, please contact your health care provider. INDICATION: Chest pain TECHNIQUE: Chest 1 view. COMPARISON: Chest x-ray 04/18/[address] 04/18/2023 FINDINGS: Cardiovascular and mediastinum: Heart size and vasculature are normal in caliber and appearance. Mediastinum is within normal limits. Lungs and pleural spaces: Linear scarring right lung apex and left lung base similar to the prior studies. Emphysema and chronic interstitial lung disease. No acute lung consolidation, pleural effusion or pneumothorax. Bones and soft tissues: Degenerative spine unchanged. Procedure Note Pepe Cruz MD - 07/19/2024 For Patients: As a result of the Cures Act, medical imagingexams and procedure reports are released immediately into your electronicmedical record. You may view this report before your referring provider.If you have questions, please contact your health care provider. INDICATION: Chest pain TECHNIQUE: Chest 1 view. COMPARISON: Chest x-ray 04/18/[address] 04/18/2023 FINDINGS: Cardiovascular and mediastinum: Heart size and vasculature are normal incaliber and appearance. Mediastinum is within normal limits. Lungs and pleural spaces: Linear scarring right lung apex and left lungbase similar to the prior studies. Emphysema and chronic interstitial lungdisease. No acute lung consolidation, pleural effusion or pneumothorax. Bones and soft tissues: Degenerative spine unchanged. IMPRESSION: Chronic chest findings similar to the prior chest x-ray and CT. No acutecardiopulmonary pathology. Dictated by Ariel Cruz MD @ 07/19/2024 11:57:39 AM (Electronically Signed) Holly Moise MD GENERAL IMAGI NG * DRUG ABUSE SCREEN RAPID URINE INHOUSE(BELLO) (07/19/2024 10:18 AM [facility]) THC METABOLITES,JEAN L Not Detected Not Detected 07/19/2024 10:[address] [facility] PCP,QUAL Not Detected Not Detected 07/19/2024 10:[address] [facility] COCAINE,QUAL Not Detected Not Detected 07/19/2024 10:[address] [facility] METHAMPHETAMINE , QUALITATIVE Not Detected Not Detected 07/19/2024 10:[address] [facility] OPIATES,QUAL Not Detected Not Detected 07/19/2024 10:[address] [facility] AMPHETAMINE, QUALITATIVE Not Detected Not Detected 07/19/2024 10:[address] [facility] BENZODIAZEPINES ,QUAL Not Detected Not Detected 07/19/2024 10:[address] [facility] TRICYCLICS,QUAL Not Detected Not Detected 07/19/2024 10:[address] [facility] METHADONE, QUALITATIVE Not Detected Not Detected 07/19/2024 10:[address] [facility] BARBITURATES,QU AL Not Detected Not Detected 07/19/2024 10:[address] [facility] OXYCODONE, QUALITATIVE Not Detected Not Detected 07/19/2024 10:[address] [facility] BUPRENORPHINE, QUALITATIVE Not Detected Not Detected 07/19/2024 10:[address] [facility] Urine URINE SPECIMEN / Unknown Non-Blood / Unknown 07/19/2024 10:18 AM [facility] 07/19/2024 10:22 AM [facility] - 07/19/2024 10:42 AM [facility] Please Note: This is a screening test only, all results are unconfirmed and should be used for medical purposes only. Unconfirmed results must not be used for non-medical purposes (e.g., employment testing, legal testing). Suggest analyte specific confirmation for all non-negative results. Specimens will be held for 24 hours if additional testing is needed. The following threshold concentrations are used for this analysis: Drug Screening Threshold Buprenorphine 10 ng/mL PCP 25 ng/mL THC Metabolites 50 ng/mL *Opiates 100 ng/mL Oxycodone 100 ng/mL Cocaine 150 ng/mL Benzodiazepines 150 ng/mL Methadone 200 ng/mL Barbiturates 200 ng/mL Tricyclic Antidepressants 300 ng/mL Amphetamines 500 ng/mL Methamphetamines 500 ng/mL *Includes related compounds: Codeine 50 ng/mL Heroin 100 ng/mL Morphine 100 ng/mL Hydrocodone 400 ng/mL Hydromorphone 800 ng/mL Venlafaxine (Effexor) is a known cross reactant in the PCP assay. If clinically indicated, order PCP confirmation. Holly Moise MD URINE [facility] [address] [place] [address] * (ABNORMAL) URINALYSIS MICROSCOPIC (07/19/2024 10:18 AM [facility]) RBC 0-2 0-2, None Seen /HPF 07/19/2024 10:[address] [facility] WBC 0-2 0-2, 3-5, None Seen /HPF 07/19/2024 10:[address] [facility] BACTERIA Many(A) None Seen, Rare, Few Bacteria/H PF 07/19/2024 10:[address] [facility] EPITHELIAL CELLS Few None Seen, Few Epi/HPF 07/19/2024 10:[address] [facility] Mucus Present 07/19/2024 10:[address] [facility] Urine URINE SPECIMEN / Unknown Non-Blood / Unknown 07/19/2024 10:18 AM [facility] 07/19/2024 10:22 AM [facility] Holly Moise MD URINE Performing Organization Address [facility]/State/ZIP Co de Phone Number [facility] [address] [place] [phone] * (ABNORMAL) URINALYSIS W REFLEX MICROSCOPIC IF POSITIVE (07/19/2024 10:18 AM [facility]) COLOR Yellow Yellow Color 07/19/2024 10:[address] [facility] CLARITY Clear Clear Clarity 07/19/2024 10:[address] [facility] SPECIFIC GRAVITY,URINE 1.020 1.010, 1.015, 1.020, 1.025 07/19/2024 10:[address] [facility] PH,URINE 7.5 6.0, 7.0, 8.0, 5.5, 6.5, 7.5, 8.5 07/19/2024 10:[address] [facility] UROBILINOGEN, QUALITATIVE Increased(A) Normal EU/dl 07/19/2024 10:[address] [facility] PROTEIN, URINE 30(A) Negative mg/dL 07/19/2024 10:[address] [facility] GLUCOSE, URINE 100(A) Negative mg/dL 07/19/2024 10:[address] [facility] KETONES,URINE Negative Negative mg/dL 07/19/2024 10:25 AM [facility] BILIRUBIN,URI NE Negative Negative 07/19/2024 10:25 AM [facility] OCCULT BLOOD,URINE Negative Negative 07/19/2024 10:[address] [facility] NITRITE Negative Negative 07/19/2024 10:25 AM [facility] LEUKOCYTE ESTERASE Negative Negative 07/19/2024 10:25 AM [facility] Urine URINE SPECIMEN / Unknown Non-Blood / Unknown 07/19/2024 10:18 AM [facility] 07/19/2024 10:22 AM [facility] Holly Moise MD URINE [facility] [address] [place] [id number] * EKG 12 LEAD (07/19/2024 9:48 AM [facility]) Pathologist [facility] Interpretation Normal sinus rhythm Normal ECG When compared with ECG of 18-Apr-2023 16:15, No significant change was found BEYOND NOW Ventricular Rate 95 BPM BEYOND NOW Atrial Rate 95 BPM BEYOND NOW P-R Interval 124 ms BEYOND NOW QRS Duration 76 ms BEYOND NOW QT 348 ms BEYOND NOW QTc 437 ms BEYOND NOW P [place] 60 degrees BEYOND NOW R [place] 53 degrees BEYOND NOW T [place] 65 degrees BEYOND NOW 07/19/2024 9:48 AM [facility] 07/19/2024 12:58 PM [facility] Holly Moise MD EKG ORD BEYOND NOW [place], [place] * (ABNORMAL) CBC WITH AUTO DIFFERENTIAL (07/19/2024 9:33 AM [facility]) WHITE BLOOD COUNT 7.3 4.5 - 11.0 thou/cu mm 07/19/2024 9:40 AM [facility] RED BLOOD COUNT 4.62 4.00 - 5.20 mil/cu mm 07/19/2024 9:[address] [facility] HEMOGLOBIN 15.7 12.0 - 16.0 g/dL 07/19/2024 9:[address] [facility] HEMATOCRIT 44.4 33.0 - 51.0 % 07/19/2024 9:[address] [facility] MCV 96 80 - 100 fL 07/19/2024 9:[address] [facility] MCH 34.0 26.0 - 34.0 pg 07/19/2024 9:[address] [facility] MCHC 35.4 32.0 - 36.0 g/dL 07/19/2024 9:[address] [facility] RDW 12.7 11.5 - 15.5 % 07/19/2024 9:[address] [facility] PLATELET COUNT 100(L) 140 - 440 thou/cu mm 07/19/2024 9:[address] [facility] MPV 9.3 6.5 - 11.0 fL 07/19/2024 9:[address] [facility] % NEUT 81.0 % 07/19/2024 9:[address] [facility] % LYMPH 10.6 % 07/19/2024 9:[address] [facility] % MONO 8.0 % 07/19/2024 9:[address] [facility] % EOS 0.1 % 07/19/2024 9:[address] [facility] % BASO 0.3 % 07/19/2024 9:[address] [facility] ABSOLUTE NEUTROPHILS 5.9 1.7 - 7.0 thou/cu mm 07/19/2024 9:[address] [facility] ABSOLUTE LYMPHOCYTES 0.8(L) 0.9 - 2.9 thou/cu mm 07/19/2024 9:[address] [facility] ABSOLUTE MONOCYTES 0.6 <0.9 thou/cu mm 07/19/2024 9:[address] [facility] ABSOLUTE EOSINOPHILS 0.0 <0.5 thou/cu mm 07/19/2024 9:[address] [facility] ABSOLUTE BASOPHILS 0.0 <0.3 thou/cu mm 07/19/2024 9:[address] [facility] Blood BLOOD SPECIMEN / Unknown Capillary / Unknown 07/19/2024 9:33 AM [facility] 07/19/2024 9:36 AM [facility] Holly Moise MD HEMATOLOGY [facility] [address] [place] [address] * TSH (07/19/2024 9:33 AM [facility]) TSH 2.40 0.27 - 4.20 uIU/mL 07/19/2024 10:19 AM [facility] Blood BLOOD SPECIMEN / Unknown Capillary / Unknown 07/19/2024 9:33 AM [facility] 07/19/2024 9:36 AM [facility] Narrative [facility] - 07/19/2024 10:19 AM [facility] In Adults, TSH values between 5.00 and 10.00 uIU/ml do not necessarily indicate the presence of Hypothyroidism. Correlation with clinical findings such as presence of goiter and/or Thyroperoxidase (TPO) Antibody may be helpful. For more information please refer to RODRIGO 2004; 291: 228-238. Holly Moise MD CHEMISTRY Performing Organization Address City/[facility]/ZIP Co de Phone Number [facility] [address] [place] [address] * ETHANOL SERUM OR PLASMA (07/19/2024 9:33 AM [facility]) Pathologist [facility] ETHANOL <0.010 <0.010 g/dL 07/19/2024 10:12 AM [facility] Blood BLOOD SPECIMEN / Unknown Capillary / Unknown 07/19/2024 9:33 AM [facility] 07/19/2024 9:36 AM [facility] Holly Moise MD CHEMISTRY [facility] [address] [place] [address] * AMMONIA (07/19/2024 9:33 AM [facility]) Pathologist [facility] AMMONIA 25 16 - 60 umol/L 07/19/2024 10:[address] [facility] Blood BLOOD SPECIMEN / Unknown Capillary / Unknown 07/19/2024 9:33 AM [facility] 07/19/2024 9:36 AM [facility] - 07/19/2024 10:10 AM [facility] 1. Sulfasalazine and its metabolite Sulfapyridine at therapeutic concentrations may lead to falsely low results. 2. Temozolomide and its metabolite MTIC may lead to falsely elevated results, and its metabolite AIC may lead to falsely low results. Holly Moise MD CHEMISTRY [facility] [address] [place] [address] * (ABNORMAL) HEPATIC FUNCTION PANEL (07/19/2024 9:33 AM [facility]) Pathologist [facility] ALBUMIN 4.9 4.0 - 4.9 g/dL 07/19/2024 10:[address] [facility] PROTEIN,TOTAL 7.7 6.0 - 8.0 g/dL 07/19/2024 10:[address] [facility] BILIRUBIN,TOTAL 1.2 0.0 - 1.2 mg/dL 07/19/2024 10:[address] [facility] BILIRUBIN,DIRECT 0.5(H) 0.0 - 0.2 mg/dL 07/19/2024 10:[address] [facility] BILIRUBIN,INDIRE CT 0.7 0.2 - 0.8 mg/dL 07/19/2024 10:[address] [facility] ALK PHOSPHATASE 127(H) 35 - 104 IU/L 07/19/2024 10:[address] [facility] ALT (SGPT) 17 10 - 35 IU/L 07/19/2024 10:[address] [facility] AST (SGOT) 35 10 - 35 IU/L 07/19/2024 10:[address] [facility] Blood BLOOD SPECIMEN / Unknown Capillary / Unknown 07/19/2024 9:33 AM [facility] 07/19/2024 9:36 AM [facility] Holly Moise MD CHEMISTRY [facility] [address] [facility] [place] [address] * (ABNORMAL) BASIC METABOLIC PANEL (07/19/2024 9:33 AM [facility]) SODIUM 141 136 - 145 mmol/L 07/19/2024 10:[address] [facility] POTASSIUM 3.5 3.5 - 5.1 mmol/L 07/19/2024 10:[address] [facility] CHLORIDE 97(L) 98 - 107 mmol/L 07/19/2024 10:[address] [facility] CO2,TOTAL 28 22 - 29 mmol/L 07/19/2024 10:[address] [facility] ANION GAP 16 5 - 18 07/19/2024 10:[address] [facility] GLUCOSE 130(H) 70 - 99 mg/dL 07/19/2024 10:[address] [facility] CALCIUM 9.9 8.8 - 10.4 mg/dL 07/19/2024 10:[address] [facility] Comment: Reference ranges for this test were updated on 07/05/2024 to reflect our healthy population more accurately. Reference range changes are not retroactively applied to results, but previous results using the same methodology can be interpreted in the context of the new reference range. BUN 5(L) 8 - 23 mg/dL 07/19/2024 10:[address] [facility] CREATININE 0.48(L) 0.50 - 0.90 mg/dL 07/19/2024 10:[address] [facility] BUN/CREAT RATIO 10 10 - 20 4 10:[address] [facility] eGFR >90 >90 mL/min/1. 73m2 07/19/2024 10:[address] [facility] Comment:As of 2021, eG FR is calculated by the CKD-EPI creatinine equation without race adjustment. eGFR can be influenced by muscle mass, exercise, and diet. The reported eGFR is an estimation only and is only applicable if the renal function is stable. Blood BLOOD SPECIMEN / Unknown Capillary / Unknown 07/19/2024 9:33 AM [facility] 07/19/2024 9:36 AM [facility] Holly Moise MD CHEMISTRY [facility] [address] [place] [address] from Last 3 Months Advance Directives * Full Code (Latest Code Status on File) Date Activated Date Inactivated Comments 07/19/2024 3:44 PM 07/20/2024 6:10 PM Question Answer Comments Code Status Discussion: Reviewed Preferences Care Teams [employer] Supervisor Relationship Specialty Start Date End Date Clinic, [facility] [address] [place] [address] PCP - General 07/19/24
== END 2024-08-02 14:16 | disposition home or self-care (01) ==
PROVIDERS: PCP Nurse Practitioner Family; Visit Provider Nurse Practitioner Family
DX: I10 Essential (primary) hypertension (principal); R79.0 Abnormal level of blood mineral
CPT/HCPCS: 80048; 83735